=== PATIENT | female | born 1995 | race Hispanic/Latino ===

== ENCOUNTER 2024-02-11 15:57 | Day surgery (SDC) | payer OTHER ==
[2024-02-11] MEDS ORDERED: hydrALAZINE 20 MG/ML VIAL SLOW IVP PRN (16:28)
[2024-02-11] MEDS ORDERED: Lactated Ringer's 1,000 ML IV SCH (16:45)
[2024-02-11 16:53] LABS: Bilirubin Neg (Negative); Blood, Urine Negative (Negative); Clarity Clear (Clear); Glucose, Urine (Dipstick) Normal (Negative); Ketone, Urine Negative (Negative); Leukocyte Negative (Negative); Nitrite Negative (Negative); Protein, Urine (Dipstick) Negative (Neg-Trace); Urobilinogen Normal mg/dL (Less than 2)
[2024-02-11 17:18] LABS: Bacteria/HPF Rare-Few HPF (None Seen); CAUTI Indications for Culture Pregnancy; RBC/HPF 0-3 HPF (0-3); WBC/HPF 0-3 HPF (0-3)
[2024-02-11 17:20] LABS: Urine Culture Reflex Yes Yes
[2024-02-11 18:15] VITALS: BMI 35.9
== END 2024-02-11 18:48 | disposition home health service (06) ==
LOC: CSHLD/OP 15:57
PROVIDERS: ATTEND Obstetrics & Gynecology
DX: Z04.3 Encounter for examination and observation following other accident (principal); O34.211 Maternal care for low transverse scar from previous cesarean delivery; Z79.82 Long term (current) use of aspirin; Z79.899 Other long term (current) drug therapy; Z3A.21 21 weeks gestation of pregnancy; W01.0XXA Fall on same level from slipping, tripping and stumbling without subsequent striking against object, initial encounter
CPT/HCPCS: 81001; 87086

== ENCOUNTER 2024-05-03 21:35 | Day surgery (SDC) | payer OTHER ==
[2024-05-03 22:15] VITALS: BMI 39.1
[2024-05-03] MEDS ORDERED: hydrALAZINE 20 MG/ML VIAL SLOW IVP PRN (22:45)
[2024-05-04 00:01] LABS: Fetal Membranes Rupture No Membranes Rupture (No Rupture)
== END 2024-05-04 00:27 | disposition home or self-care (01) ==
LOC: CSHLD/OP 21:35
PROVIDERS: ATTEND Family Medicine
DX: O36.63X0 Maternal care for excessive fetal growth, third trimester, not applicable or unspecified (principal); O99.013 Anemia complicating pregnancy, third trimester; O99.213 Obesity complicating pregnancy, third trimester; Z3A.33 33 weeks gestation of pregnancy; Z87.59 Personal history of other complications of pregnancy, childbirth and the puerperium; Z79.82 Long term (current) use of aspirin; Z79.899 Other long term (current) drug therapy
CPT/HCPCS: 84112; 99283

== ENCOUNTER 2024-05-11 13:46 | Day surgery (SDC) | payer OTHER ==
[2024-05-11] MEDS ORDERED: hydrALAZINE 20 MG/ML VIAL SLOW IVP PRN (14:08)
[2024-05-11 14:28] LABS: Bilirubin Neg (Negative); Blood, Urine Negative (Negative); Clarity Slightly Cloudy (Clear); Glucose, Urine (Dipstick) Normal (Negative); Ketone, Urine Negative (Negative); Leukocyte Negative (Negative); Nitrite Negative (Negative); Protein, Urine (Dipstick) Negative (Neg-Trace); Urobilinogen Normal mg/dL (Less than 2)
[2024-05-11 14:29] VITALS: BMI 39.4
[2024-05-11 15:01] LABS: Creatinine, Urine 30.36 mg/dL (47-110); Protein, Urine Random Quant Less than 10 mg/dL (1-14)
[2024-05-11 15:04] LABS: #Basophils 0.04 10x3/uL (0.0-0.2); #Eosinphils 0.28 10x3/uL (0.0-0.5); #Neutrophils 7.24 10x3/uL (1.5-8.4); %Basophils 0.4 % (0.0-2.0); %Lymphocytes 13.2 % (18.0-47.0); %Monocytes 6.3 % (0.0-10.0); %Neutrophils 76.7 % (40.0-75.0); Hematocrit 35.8 % (34.9-44.5); Hemoglobin 11.7 g/dL (12.0-15.5); Mean Corpuscular HGB CONC 32.7 g/dL (32.0-36.0); Mean Corpuscular Volume 91.8 fL (81.6-98.3); Mean Platelet Volume 9.5 fL (7.4-10.4); Platelet Count 212 10x3/uL (150-450); RBC Distribution Width 14.3 % (11.5-14.5); White Blood Cell (WBC) Count 9.5 10x3/uL (3.5-10.5)
[2024-05-11 15:25] LABS: ALT (SGPT) 12 U/L (8-55); AST (SGOT) 13 U/L (5-34); Albumin 2.9 g/dL (3.5-5.0); Alkaline Phosphatase 124 U/L (40-110); Anion Gap 13 mmol/L (10-20); BUN (Urea Nitrogen) 9 mg/dL (7.0-18.7); Bilirubin, Total 0.3 mg/dL (0.2-1.2); Calc. Creatinine Clearance 184 mL/min (70-130); Calcium 9.2 mg/dL (7.8-10.44); Carbon Dioxide 20 mmol/L (22-29); Chloride 107 mmol/L (98-107); Estimated GFR 122; Globulin 3.8 g/dL (2.4-3.5); Glucose 114 mg/dL (70-105); Potassium 3.6 mmol/L (3.5-5.1); Protein, Total 6.7 g/dL (6.0-8.3); Sodium 136 mmol/L (136-145)
[2024-05-11 16:06] LABS: Bacteria/HPF Rare-Few HPF (None Seen); CAUTI Indications for Culture Pregnancy; RBC/HPF None Seen HPF (0-3); WBC/HPF None Seen HPF (0-3)
[2024-05-11 16:07] LABS: Urine Culture Reflex Yes Yes
== END 2024-05-11 16:31 | disposition home or self-care (01) ==
LOC: CSHLD/OP 13:46
PROVIDERS: ATTEND Family Medicine
DX: O99.891 Other specified diseases and conditions complicating pregnancy (principal); R03.0 Elevated blood-pressure reading, without diagnosis of hypertension; O99.013 Anemia complicating pregnancy, third trimester; Z79.82 Long term (current) use of aspirin; Z79.899 Other long term (current) drug therapy; Z3A.34 34 weeks gestation of pregnancy
CPT/HCPCS: 36415; 80053; 81001; 82570; 84156; 85025; 87086

== ENCOUNTER 2024-05-22 20:14 | Observation (INO) | payer OTHER ==
[2024-05-22 20:46] VITALS: BMI 39.4
[2024-05-22] MEDS ORDERED: hydrALAZINE 20 MG/ML VIAL SLOW IVP PRN (20:50)
[2024-05-22 21:31] LABS: #Basophils 0.04 10x3/uL (0.0-0.2); #Monocytes 0.67 10x3/uL (0.0-1.1); #Neutrophils 5.81 10x3/uL (1.5-8.4); %Basophils 0.4 % (0.0-2.0); %Eosinophils 2.2 % (0.0-6.0); %Lymphocytes 25.3 % (18.0-47.0); %Monocytes 7.4 % (0.0-10.0); %Neutrophils 64.3 % (40.0-75.0); Hematocrit 36.2 % (34.9-44.5); Hemoglobin 12.2 g/dL (12.0-15.5); Mean Corpuscular HGB CONC 33.7 g/dL (32.0-36.0); Mean Corpuscular Hemoglobin 30.6 pg (27.0-33.0); Mean Corpuscular Volume 90.7 fL (81.6-98.3); Mean Platelet Volume 9.6 fL (7.4-10.4); Platelet Count 229 10x3/uL (150-450); RBC Distribution Width 14.3 % (11.5-14.5); Red Blood Cell (RBC) Count 3.99 10x6/uL (3.90-5.03); White Blood Cell (WBC) Count 9.1 10x3/uL (3.5-10.5)
[2024-05-22 21:45] LABS: Creatinine, Urine Less than 20.00 mg/dL (47-110); Protein, Urine Random Quant Less than 10 mg/dL (1-14)
[2024-05-22 21:46] LABS: ALT (SGPT) 10 U/L (8-55); AST (SGOT) 13 U/L (5-34); Albumin 2.9 g/dL (3.5-5.0); Alkaline Phosphatase 142 U/L (40-110); Anion Gap 13 mmol/L (10-20); BUN (Urea Nitrogen) 9 mg/dL (7.0-18.7); Bilirubin, Total 0.2 mg/dL (0.2-1.2); Calc. Creatinine Clearance 202 mL/min (70-130); Calcium 9.3 mg/dL (7.8-10.44); Carbon Dioxide 19 mmol/L (22-29); Chloride 108 mmol/L (98-107); Estimated GFR 124; Globulin 3.4 g/dL (2.4-3.5); Glucose 95 mg/dL (70-105); Potassium 3.8 mmol/L (3.5-5.1); Protein, Total 6.3 g/dL (6.0-8.3); Sodium 136 mmol/L (136-145)
[2024-05-23] MEDS: Acetaminophen 500 MG TAB PO SCH (00:49)
[2024-05-23 07:31] LABS: Bilirubin Neg (Negative); Blood, Urine Negative (Negative); Clarity Clear (Clear); Glucose, Urine (Dipstick) Normal (Negative); Ketone, Urine Negative (Negative); Leukocyte Negative (Negative); Nitrite Negative (Negative); Protein, Urine (Dipstick) 15 mg/dl (Neg-Trace); Specific Gravity, Urine 1.015 (1.005-1.030); Urobilinogen Normal mg/dL (Less than 2); pH, Urine 6.5 (5.0-9.0)
[2024-05-23 08:03] LABS: Bacteria/HPF Rare-Few HPF (None Seen); CAUTI Indications for Culture Pregnancy; Mucous/LPF 1+ LPF (<2+); RBC/HPF 0-3 HPF (0-3); WBC/HPF 0-3 HPF (0-3)
[2024-05-23 08:04] LABS: Urine Culture Reflex No No; Urine Culture Reflex Yes Yes
[2024-05-23] MEDS ORDERED: Promethazine HCl 25 MG/ML VIAL IM PRN (09:02)
[2024-05-23] MEDS ORDERED: Acetaminophen 500 MG TAB PO PRN (09:02)
[2024-05-23] MEDS ORDERED: Ondansetron PF 4 MG/2 ML Vial IVP PRN (09:02)
[2024-05-23] MEDS: Promethazine 25 MG TAB PO SCH (09:22)
[2024-05-23] MEDS: Morphine 4 MG/ML VIAL SLOW IVP SCH (09:22)
[2024-05-23] MEDS: Lactated Ringer's 1,000 ML IV SCH (09:23)
[2024-05-23 16:09] VITALS: BP 123/75; TEMP 98.6
== END 2024-05-23 17:45 | disposition home or self-care (01) ==
LOC: CSHLD/OP 20:14 → CSHLD 05-23 09:06 → CSHANTE 05-23 10:52
PROVIDERS: ADMIT Family Medicine; ATTEND Family Medicine
DX: O47.03 False labor before 37 completed weeks of gestation, third trimester (principal); O13.3 Gestational [pregnancy-induced] hypertension without significant proteinuria, third trimester; O36.63X0 Maternal care for excessive fetal growth, third trimester, not applicable or unspecified; O99.013 Anemia complicating pregnancy, third trimester; O23.43 Unspecified infection of urinary tract in pregnancy, third trimester; B95.2 Enterococcus as the cause of diseases classified elsewhere; Z87.59 Personal history of other complications of pregnancy, childbirth and the puerperium; Z3A.35 35 weeks gestation of pregnancy
CPT/HCPCS: 80053; 81001; 82570; 84156; 85025; 87086; 87653; 96360; 96361; 96374; 99285; G0378; J2272; Q0169

== ENCOUNTER 2024-06-01 05:29 | Inpatient (IN) | payer OTHER ==
[2024-05-31 11:14] LABS: Hematocrit 38.4 % (34.9-44.5); Hemoglobin 12.9 g/dL (12.0-15.5); Mean Corpuscular HGB CONC 33.6 g/dL (32.0-36.0); Mean Corpuscular Hemoglobin 30.4 pg (27.0-33.0); Mean Corpuscular Volume 90.6 fL (81.6-98.3); Mean Platelet Volume 9.6 fL (7.4-10.4); Platelet Count 211 10x3/uL (150-450); RBC Distribution Width 14.2 % (11.5-14.5); Red Blood Cell (RBC) Count 4.24 10x6/uL (3.90-5.03)
[2024-05-31 12:09] LABS: Syphilis Antibody Nonreactive (Nonreactive); Syphilis Antibody Index 0.03 S/CO (<1.00 Non-Reactive)
[2024-05-31 12:10] LABS: HBsAg Index 0.29 S/CO (0-0.99); Hep B Surf Ag Non-Reactive S/CO (NonReactive)
[2024-06-01 05:51] VITALS: BMI 39.6
[2024-06-01] MEDS ORDERED: Tranexamic Acid 1,000 MG/10 ML VIAL IVP PRN (06:58)
[2024-06-01] MEDS ORDERED: Carboprost 250 MCG/ML AMP IM PRN (06:58)
[2024-06-01] MEDS ORDERED: Ondansetron PF 4 MG/2 ML Vial IVP PRN ×4 (06:58→12:09)
[2024-06-01] MEDS ORDERED: Promethazine HCl 25 MG/ML VIAL IM PRN ×2 (06:58→10:45)
[2024-06-01] MEDS ORDERED: Misoprostol 200 MCG TAB PR PRN ×2 (06:58→12:09)
[2024-06-01] MEDS ORDERED: Bicitra 30 ML UDCUP PO PRN (06:58)
[2024-06-01] MEDS ORDERED: Famotidine/PF 20 mg/2ml Vial SLOW IVP PRN (06:58)
[2024-06-01] MEDS ORDERED: hydrALAZINE 20 MG/ML VIAL SLOW IVP PRN ×2 (06:58→12:09)
[2024-06-01] MEDS ORDERED: Diphenoxylate HCl/Atropine Tablet PO PRN (06:58)
[2024-06-01] MEDS ORDERED: CEFAZOLIN 2 GM in Sodium Chloride 0.9% 100 ML IVPB SCH (07:00)
[2024-06-01] MEDS ORDERED: Oxytocin 30 units/NS 500 ML 500 ML IV SCH ×2 (07:00→12:09)
[2024-06-01] MEDS: CEFAZOLIN 2 GM VIAL ONE (07:18)
[2024-06-01] MEDS ORDERED: Moisturizing Cream (Eucerin) 113 GM JAR TOP PRN (10:45)
[2024-06-01] MEDS ORDERED: Naloxone HCl 0.4 mg/ml Vial IVP PRN ×2 (10:45)
[2024-06-01] MEDS ORDERED: HYDROmorphone 0.5 MG/0.5 ML SYRINGE SLOW IVP PRN (10:45)
[2024-06-01] MEDS ORDERED: Communication Order-Pharmacy FS SCH (10:45)
[2024-06-01] MEDS ORDERED: diphenhydrAMINE 50 MG/ML VIAL IVP PRN (10:45)
[2024-06-01] MEDS ORDERED: fentaNYL 50 mcg/mL 1 mL Vial SLOW IVP PRN (10:45)
[2024-06-01] MEDS ORDERED: Naloxone HCl 0.4 mg/ml Vial IV PRN (10:45)
[2024-06-01] MEDS ORDERED: Meperidine HCl/PF 25 MG (1 mL) VIAL SLOW IVP PRN (10:45)
[2024-06-01] MEDS: Ketorolac Tromethamine 30 MG (1 mL) VIAL IVP SCH (11:39)
[2024-06-01] MEDS ORDERED: Lanolin Ointment 7 GM TUBE TOP PRN (12:09)
[2024-06-01] MEDS ORDERED: diphenhydrAMINE 25 MG CAP PO PRN (12:09)
[2024-06-01] MEDS: Ferrous Sulfate 325 MG TAB PO SCH (14:55)
[2024-06-01] MEDS: Docusate 100 MG CAP PO SCH ×2 (14:56→19:29)
[2024-06-01] MEDS: Prenatal Vitamin 1 TAB PO SCH (14:56)
[2024-06-01] MEDS: Morphine 2 MG/ML VIAL SLOW IVP PRN (15:43)
[2024-06-01] MEDS: Simethicone Chewable 80 MG TAB PO PRN (17:01)
[2024-06-01] MEDS: Oxytocin 10 UNITS/ML VIAL ONE (18:14)
[2024-06-01] MEDS: PHENYLEPHRINE-NS 100 MCG/ML 10 ML SYRINGE ONE (18:14)
[2024-06-01] MEDS: fentaNYL 50 mcg/mL 1 mL Vial ONE (18:14)
[2024-06-01] MEDS: Ondansetron PF 4 MG/2 ML Vial ONE (18:14)
[2024-06-01] MEDS: Morphine PF 10 MG/10 ML VIAL ONE (18:14)
[2024-06-01] MEDS: Methylergonovine 0.2 MG/ML VIAL ONE (18:15)
[2024-06-01] MEDS: Tranexamic Acid 1,000 MG/10 ML VIAL ONE (18:15)
[2024-06-01] MEDS: Carboprost 250 MCG/ML AMP ONE (18:15)
[2024-06-01] MEDS: Misoprostol 200 MCG TAB ONE (18:15)
[2024-06-01] MEDS: Sterile Water 10 ML ONE (18:16)
[2024-06-01] MEDS: ePHEDrine Sulfate 50 MG/10 ML VIAL ONE (18:16)
[2024-06-01] MEDS: Dexmedetomidine 200 MCG/2 ML VIAL ONE (18:16)
[2024-06-01] MEDS: Ketorolac Tromethamine 30 MG (1 mL) VIAL IVP PRN (19:29)
[2024-06-02] MEDS: Ferrous Sulfate 325 MG TAB PO SCH (00:57)
[2024-06-02] MEDS: HYDROcodone/Acetaminophen 5/325 mg Tablet PO PRN ×2 (03:52→12:47)
[2024-06-02 05:33] LABS: Hematocrit 29.5 % (34.9-44.5); Mean Corpuscular HGB CONC 33.9 g/dL (32.0-36.0); Mean Corpuscular Volume 91.3 fL (81.6-98.3); Mean Platelet Volume 9.7 fL (7.4-10.4); Platelet Count 162 10x3/uL (150-450); RBC Distribution Width 14.6 % (11.5-14.5); Red Blood Cell (RBC) Count 3.23 10x6/uL (3.90-5.03); White Blood Cell (WBC) Count 9.5 10x3/uL (3.5-10.5)
[2024-06-02] MEDS: Prenatal Vitamin 1 TAB PO SCH (08:17)
[2024-06-02] MEDS: Ibuprofen 800 MG TAB PO SCH (14:17)
[2024-06-02 18:33] LABS: Bilirubin Neg (Negative); Blood, Urine 250 (Negative); Clarity Slightly Cloudy (Clear); Glucose, Urine (Dipstick) Normal (Negative); Ketone, Urine Negative (Negative); Leukocyte Negative (Negative); Nitrite Negative (Negative); Protein, Urine (Dipstick) 15 mg/dl (Neg-Trace); Specific Gravity, Urine 1.005 (1.005-1.030); Urobilinogen Normal mg/dL (Less than 2)
[2024-06-02 18:58] LABS: Bacteria/HPF 1+ HPF (None Seen); CAUTI Indications for Culture Pregnancy; Mucous/LPF Rare LPF (<2+); WBC/HPF 0-3 HPF (0-3)
[2024-06-02 18:59] LABS: Urine Culture Reflex No No; Urine Culture Reflex Yes Yes
[2024-06-02] MEDS: Sodium Chloride 0.9% 500 ML IV SCH (19:24)
[2024-06-03] MEDS: Boostrix 0.5 ML (Tdap) VIAL (>/=7 yrs of age) IM ONE (10:04)
[2024-06-03] MEDS: Acetaminophen 325 MG TAB PO PRN (18:21)
[2024-06-04 08:03] VITALS: BP 145/75; TEMP 98.2
== END 2024-06-04 13:35 | disposition home or self-care (01) | DRG 788 ==
LOC: CSHLD 05:29 → MERGE 07:30 → CSHLD 08:01 → CSHPED 12:20
PROVIDERS: ADMIT Family Medicine; ATTEND Family Medicine
PROC: 10D00Z1 Extraction of Products of Conception, Low, Open Approach (ICD-10-PCS; principal; 2024-06-01)
DX: O13.4 Gestational [pregnancy-induced] hypertension without significant proteinuria, complicating childbirth (principal); Z3A.37 37 weeks gestation of pregnancy; Z37.0 Single live birth; O99.214 Obesity complicating childbirth; O34.211 Maternal care for low transverse scar from previous cesarean delivery; E66.812 Obesity, class 2; R33.9 Retention of urine, unspecified
CPT/HCPCS: 36415; 51702; 81001; 85027; 86780; 86850; 86900; 86901; 87077; 87086; 87186; 87340; J1885; J2272; J2274; J2405; J2590; J3010